=== PATIENT | male | born 1985 | race Caucasian/White ===

== ENCOUNTER 2017-03-02 20:10 | Emergency (ER) | payer OTHER ==
[2017-03-02 20:18] VITALS: BP 159/97
[2017-03-02] MEDS ORDERED: LIDOCAINE 2% URO-JET 5 ML SYRINGE UR STA (20:35)
[2017-03-02] MEDS ORDERED: IBUPROFEN 600 MG TABLET PO STA (20:35)
[2017-03-02] MEDS ORDERED: BACITRACIN OINT TOP STA (20:37)
[2017-03-02] MEDS ORDERED: LIDOCAINE 2% URO-JET 5 ML SYRINGE UR ONE (20:42)
[2017-03-02] MEDS ORDERED: IBUPROFEN 600 MG TABLET PO ONE (20:42)
[2017-03-02] MEDS ORDERED: BACITRACIN OINT TOP ONE (20:43)
--- NOTE | 2017-03-02 20:47 | ED Physician Documentation ---
PD HPI SKIN - Stated complaint Stated Complaint: BLISTERS BODY - Chief complaint Chief Complaint: General - History obtained from History obtained from: Patient - History of Present Illness Timing - onset: Yesterday Timing - details: Abrupt onset Location: RUE, LUE Quality / character: Painful, Burning, Discolored Associated symptoms: No: Fever, Myalgias, Joint pain Contributing factors: Unknown (sun exposure) Similar symptoms before: No diagnosis Recently seen: Not recently seen - Additional information Additional information: Patient is a 31 year old pale skin male who is presenting to the emergency department for pain and blistering of his shoulders. patient states that he was out in the sun a few days ago. the next day the area started to blister and he had a hard time raising his arms above his head. patient states that the pain seems to be getting progressively worse. Patient has been applying aloe with little relief. Review of Systems Constitutional: denies: Fever, Chills Eyes: denies: Loss of vision Ears: denies: Ear pain, Drainage/discharge Nose: denies: Rhinorrhea / runny nose, Congestion Cardiac: denies: Palpitations Respiratory: denies: Wheezing GI: denies: Nausea, Vomiting : denies: Dysuria, Frequency, Hesitancy Skin: reports: Rash Musculoskeletal: reports: Extremity pain, Extremity swelling Neurologic: denies: Numbness, Altered mental status Immunocompromised: denies: Immunocompromised PD PAST MEDICAL HISTORY - Past Medical History Respiratory: None Neuro: None Endocrine/Autoimmune: None GI: None : None HEENT: None Psych: None Musculoskeletal: None Derm: Other - Past Surgical History Past Surgical History: Yes Derm: Skin cancer surgery - Present Medications Home Medications: Ambulatory Orders Medication Instructions Recorded Confirmed Esomeprazole Magnesium [Nexium] 10 mg PO DAILY 03/02/17 03/02/17 Lidocaine Ointment 5% [Xylocaine 1 gm TOP QID #35 gm 03/02/17 Ointment 5%] - Allergies Allergies/Adverse Reactions: Allergies Allergy/AdvReac Type Severity Reaction Status Date / Time No Known Drug Allergies Allergy Verified 03/02/17 20:32 - Social History Does the pt smoke?: Yes Smoking Status: Current every day smoker Does the pt drink ETOH?: No Does the pt have substance abuse?: No - Immunizations Immunizations are current?: Yes PD ED PE NORMAL - Vitals Vital signs reviewed: Yes - General General: Alert and oriented X 3, Well developed/nourished - HEENT HEENT: Atraumatic, PERRL - Neck Neck: Supple, no meningeal sign - Cardiac Cardiac: RRR, No murmur - Respiratory Respiratory: No respiratory distress, Clear bilaterally - Abdomen Abdomen: Soft, Non tender, Non distended - Extremities Extremities: No edema - Neuro Neuro: Alert and oriented X 3, No motor deficit, No sensory deficit, Normal speech - Psych Psych: Normal mood, Normal affect PD ED PE EXPANDED - Derm Derm: Burn(s) (partial thickness leach on bilateral shoulders with some blistering, superficial leach surrounding on bilateral arms) Results - Vitals Vitals: Vital Signs - 24 hr 03/02/17 20:16 Temperature 36.2 C L Heart Rate 81 Respiratory 18 Rate Blood Pressure 159/97 H O2 Saturation 98 Oxygen O2 Source Room air PD MEDICAL DECISION MAKING - ED course Complexity details: reviewed results, re-evaluated patient, considered differential, d/w patient ED course: Patient was seen and examined at bedside. patient was in no acute acute distress. patient had partial thickness/second degree leach on both his shoulders. patient's wounds were treated with bacitracin and lidocaine. Patient was given motrin as well. Patient tolerated treatment well and was stable for discharge with outpatient follow up. Departure - Departure Disposition: 01 Home, Self Care Clinical Impression: Sunburn of second degree Condition: Good Instructions: ED Burn D 2nd Follow-Up: primary,care provider [Other] - Within 1 week Prescriptions: Lidocaine Ointment 5% [Xylocaine Ointment 5%] 1 gm TOP QID #35 gm Comments: Your symptoms today are being caused by a sunburn. It will likely blister and get worse over the next few days before getting better. You can continue with aloe/after sun care and supplement it with bacitracin and lidocaine cream. You should not try to unroof any blisters, but if they do open, try to keep the area clean and dry. You should follow up with your pmd as needed and may return to the emergency department at any time for new, worsening or uncontrollable symptoms. Discharge Date/Time: 03/02/17 21:08
== END 2017-03-02 21:08 | disposition home or self-care (01) ==
LOC: ED 20:10
DX: L55.1 Sunburn of second degree (principal); X32.XXXA Exposure to sunlight, initial encounter; Z85.828 Personal history of other malignant neoplasm of skin; F17.200 Nicotine dependence, unspecified, uncomplicated
CPT/HCPCS: 99283; A9270

== ENCOUNTER 2017-12-20 13:01 | Outpatient (CLI) | payer OTHER | END 2017-12-20 13:02 | disposition home or self-care (01) | LOC: SC 13:01 | PROVIDERS: ATTEND Internal Medicine Pulmonary Disease | DX: G47.30 Sleep apnea, unspecified (principal); G47.10 Hypersomnia, unspecified; R06.83 Snoring; G47.8 Other sleep disorders | CPT/HCPCS: 99203; 99212 ==

== ENCOUNTER 2018-02-09 19:32 | Outpatient (CLI) | payer OTHER | END 2018-02-09 19:33 | disposition home or self-care (01) | LOC: SC 19:32 | PROVIDERS: ATTEND Internal Medicine Pulmonary Disease | DX: G47.33 Obstructive sleep apnea (adult) (pediatric) (principal); R00.1 Bradycardia, unspecified | CPT/HCPCS: 95810 ==

== ENCOUNTER 2018-02-28 14:30 | Outpatient (CLI) | payer OTHER | END 2018-02-28 14:31 | disposition home or self-care (01) | LOC: SC 14:30 | PROVIDERS: ATTEND Nurse Practitioner Family | DX: G47.33 Obstructive sleep apnea (adult) (pediatric) (principal); R00.1 Bradycardia, unspecified | CPT/HCPCS: 99212; 99214 ==

== ENCOUNTER 2018-06-22 09:07 | Outpatient (CLI) | payer OTHER | END 2018-06-22 09:08 | disposition home or self-care (01) | LOC: SC 09:07 | PROVIDERS: ATTEND Nurse Practitioner Family | DX: G47.33 Obstructive sleep apnea (adult) (pediatric) (principal) | CPT/HCPCS: 99212; 99214 ==

== ENCOUNTER 2018-07-25 11:09 | Outpatient (CLI) | payer OTHER | END 2018-07-25 11:10 | disposition home or self-care (01) | LOC: SC 11:09 | PROVIDERS: ATTEND Nurse Practitioner Family | DX: G47.33 Obstructive sleep apnea (adult) (pediatric) (principal) | CPT/HCPCS: 99212; 99214 ==

== ENCOUNTER 2018-09-28 09:59 | Day surgery (SDC) | payer OTHER ==
--- NOTE | 2018-09-28 07:33 | ANESTHESIA ---
Pre-Anesthesia VS, & Labs - Diagnosis R Knee Patella Cartilage Injury - Procedure R knee arthroscopy, chondroplasty Vital Signs: Last Vital Signs Temp 36.2 C L 09/28/18 10:10 Pulse 78 09/28/18 10:10 Resp 16 09/28/18 10:10 BP 143/83 H 09/28/18 10:10 Pulse Ox 96 09/28/18 10:10 Height 5 ft 9 in Weight (kg) 112.94 kg Body Mass Index 34.4 - NPO >8 hours Home Medications and Allergies Home Medications: Ambulatory Orders Rabeprazole Sodium [Aciphex] 20 mg PO 09/19/18 Rabeprazole Sodium [Aciphex] 20 mg PO 09/19/18 Allergies/Adverse Reactions: Allergies Allergy/AdvReac Type Severity Reaction Status Date / Time No Known Drug Allergies Allergy Verified 09/19/18 10:45 Anes History & Medical History - Anesthetic History Anesthesia Complications: reports: No previous complications Family history of Anesthesia Complications: Denies Family history of Malignant Hyperthermia: Denies - Medical History Cardiovascular: reports: None Pulmonary: reports: Sleep apnea, CPAP use Gastrointestinal: reports: GERD Urinary: reports: Other Musculoskeletal: reports: Other Endocrine/Autoimmune: reports: None Blood Disorders: reports: None Skin: reports: None Smoking Status: Former smoker Psychosocial: reports: No issues indicated - Surgical History Dermatologic: Skin cancer surgery (birthmark removed from face as a child) Exam General: Alert, Oriented x3, Cooperative Dental: WNL, Partials Upper (#6 is "fake", not loose, "hasn't come out in years") Mouth Openin Fingerbreadth Neck Mobility: Normal Mallampati classification: II Thyromental Distance: 4-6 cm Respiratory: Lungs clear, Normal breath sounds Cardiovascular: Regular rate Neurological: Normal speech Mental/Cognitive Status: Alert/Oriented X3, Normal for patient Cognitive Status: Within normal limits Plan Anesthesia Type: General Consent for Procedure(s) Verified and Reviewed: Yes Code Status: Attempt Resuscitation ASA classification: 2-Mild systemic disease Is this case an emergency?: No
[~2018-09-28 09:59] MED LIST: BUPIVACAINE 0.25% PF 30 ML VIAL ONE; EPINEPHrine 1 MG/ML AMP ONE; LACTATED RINGERS 1,000 ML IV ONE; ceFAZolin 2 GM/50 ML 2 GM/50 ML BAG IV ONE
[2018-09-28] MEDS ORDERED: BUPIVACAINE 0.25% PF 30 ML VIAL SUBQ ONE ×2 (12:12→12:50)
[2018-09-28] MEDS ORDERED: oxyCODONE 5 MG TABLET PO PRN (13:09)
[2018-09-28] MEDS ORDERED: ONDANSETRON 4 MG/2 ML VIAL IVP PRN (13:09)
--- NOTE | 2018-09-28 13:13 | OPERATIVE REPORT ---
Operative Report - General Procedure Date: 09/28/18 Planned Procedure: Right knee arthroscopic synovectomy, lateral meniscus debridement, pat camelia Pre-Op Diagnosis: right knee patellar cartilage lesion and meniscal tear Procedure Performed: Right knee arthroscopic synovectomy, lateral meniscus debridement, patellar chondroplasty Post Op Diagnosis: right knee patellar cartilage injury, lateral meniscus tear, fat pad syndro - Procedure Note Primary Surgeon: Eugene Jamil Estimated Blood Loss (mL): 5 Complications: None - Other Other Information/Narrative: Indication For Surgery: 33-year-old male with 2 years of right knee pain of insidious onset. The pain was inferior and lateral to the patella and is worse while going up and down stairs. An MRI showed a patellar cartilage lesion and potentially evidence of fat pad syndrome. Nonoperative treatment did did not resolve his symptoms.. The risks, benefits, and alternatives were discussed. Risks include pain, bleeding, infection, damage to nearby structures and cartilage, lack of symptom relief, need for further surgery, DVT, PE, stroke, and . Written consent was obtained. Examination Under Anesthesia: ROM equal to the contralateral side. Stable dial at 30 & 90 degrees. Stable to varus and valgus stressing at 0 & 30 degrees. 1 a Glenna. Normal Pivot shift. No mechanical sensation Diagnostic Arthroscopy: No loose bodies. Synovium injected and abundant. Ligamentum mucosum was thickened and was debrided.. Patella cartilage central full-thickness lesion which was debrided to a stable base final measurements are 10 mm long 8 mm wide. Trochlear cartilage grade 1 softening. Medial femoral condyle cartilage intact. Medial tibial plateau cartilage intact. Medial meniscus intact. ACL was intact. PCL was intact. Lateral femoral condyle cartilage intact. Lateral tibial plateau cartilage intact. Lateral meniscus showed a small focal tear near the root which was debrided. Procedure in Detail: The patient was met in the pre-operative hold area on the day of the procedure. The operative extremity was signed and questions were answered. The patient was brought to the operating room and a general anesthetic was administered. Supine position was used and bony prominences were padded. An examination under anesthesia was performed. Standard prepping and draping was performed. A time out confirmed patient identification, laterality, procedure, allergies, antibiotics, and images. An Esmarch was used to exsanguinate the limb and the tourniquet was elevated to 250 mmHg. Tourniquet time was 41 minutes.A standard diagnostic arthroscopy of the knee was performed through anterolateral and anteromedial portal sites. The anteromedial portal was created under direct visualization after localizing with a spinal needle. The findings can be found above. I then proceeded to use a s carlyn shaver to debride the lateral meniscus. Final pictures were taken. I then used a combination of curettes biters and shawanda to debride the patellar cartilage lesion back to a stable base. There was an additional partial- thickness crack that traveled laterally within the patella cartilage and this was not explored. Final images were taken and all arthroscopic fluid and instruments were removed from the knee. The incisions were closed with buried monocryl sutures. Steri strips were applied. 20 cc of 0.25% Marcaine without epinephrine was injected near the portal sites. A sterile dressing and compression stocking was placed. The patient was awakened and transferred to recovery in stable condition.
[2018-09-28] MEDS ORDERED: oxyCODONE 5 MG TABLET ONE (13:54)
[2018-09-28 14:50] VITALS: BP 130/62
== END 2018-09-28 10:00 | disposition home or self-care (01) ==
LOC: SDS 09:59
PROVIDERS: ATTEND Orthopaedic Surgery
PROC: 0SBC4ZZ Excision of Right Knee Joint, Percutaneous Endoscopic Approach (ICD-10-PCS; principal; 2018-09-28 11:00)
DX: M23.200 Derangement of unspecified lateral meniscus due to old tear or injury, right knee (principal); M67.51 Plica syndrome, right knee; M23.91 Unspecified internal derangement of right knee; G47.30 Sleep apnea, unspecified; K21.9 Gastro-esophageal reflux disease without esophagitis; Z87.891 Personal history of nicotine dependence
CPT/HCPCS: 29881; A9270; J0690; J7120

== ENCOUNTER 2018-10-02 17:37 | Emergency (ER) | payer OTHER ==
[2018-10-02 17:44] VITALS: BP 148/91
--- NOTE | 2018-10-02 18:21 | ED Physician Documentation ---
PD HPI OPHTHO - Stated complaint Stated Complaint: EYE REDNESS - Chief complaint Chief Complaint: Heent - History obtained from History obtained from: Patient - History of Present Illness Timing - onset: Other (Left eye red since yesterday without visual deficit. Whole family has pinkeye.) Review of Systems Constitutional: reports: Reviewed and negative Eyes: reports: Discharge, Irritation. denies: Loss of vision, Decreased vision, Photophobia Ears: denies: Loss of hearing, Ear pain PD PAST MEDICAL HISTORY - Past Medical History Cardiovascular: None Respiratory: Sleep apnea, CPAP use Endocrine/Autoimmune: None GI: GERD : Other HEENT: None Psych: None Musculoskeletal: Other Derm: None - Past Surgical History Past Surgical History: Yes Ortho: Arthroscopic surgery Derm: Skin cancer surgery - Present Medications Home Medications: Ambulatory Orders Medication Instructions Recorded Confirmed Rabeprazole Sodium [Aciphex] 20 mg PO DAILY 09/19/18 09/28/18 Ibuprofen [Advil] 10/02/18 Polymyxin B/Trimeth Ophth Drop 1 drops EACHEYE Q3H 7 Days #1 10/02/18 [Polytrim Ophth Drops] bottle Sennosides/Docusate Sodium [Colace 10/02/18 2-in-1 Tablet] oxyCODONE/ACET 5/325 [Percocet 5 10/02/18 mg/325 mg] - Allergies Allergies/Adverse Reactions: Allergies Allergy/AdvReac Type Severity Reaction Status Date / Time No Known Drug Allergies Allergy Verified 10/02/18 17:43 - Social History Does the pt smoke?: Yes Smoking Status: Current every day smoker Does the pt drink ETOH?: No Does the pt have substance abuse?: No - Immunizations Immunizations are current?: Yes PD ED PE NORMAL - Vitals Vital signs reviewed: Yes - General General: Alert and oriented X 3, No acute distress - HEENT HEENT: PERRL (Left eye conjunctivitis), Ears normal, Pharynx benign - Neck Neck: Supple, no meningeal sign, No bony TTP - Neuro Neuro: Alert and oriented X 3, Normal speech Results - Vitals Vitals: Vital Signs - 24 hr 10/02/18 17:39 Temperature 36.1 C L Heart Rate 113 H Respiratory 16 Rate Blood Pressure 148/91 H O2 Saturation 99 Oxygen O2 Source Room air Departure - Departure Disposition: 01 Home, Self Care Clinical Impression: Conjunctivitis, left eye Qualifiers: Conjunctivitis type: acute Acute conjunctivitis type: unspecified Qualified Code(s): H10.32 - Unspecified acute conjunctivitis, left eye Condition: Good Record reviewed to determine appropriate education?: Yes Instructions: ED Conjunctivitis Nonspecific Prescriptions: Polymyxin B/Trimeth Ophth Drop [Polytrim Ophth Drops] 1 drops EACHEYE Q3H 7 Days #1 bottle Comments: Call your doctor to arrange a follow-up appointment, make the next available appointment. In the interim, return anytime if worse or if new symptoms develop. Your blood pressure was elevated today on check into the emergency department. This does not mean that you have hypertension, it is a common phenomenon to come to the emergency department and have elevated blood pressure. I recommend that you see your primary care physician within the week to have it rechecked when you are feeling better.
== END 2018-10-02 18:35 | disposition home or self-care (01) ==
LOC: ED 17:37
DX: H10.32 Unspecified acute conjunctivitis, left eye (principal); R03.0 Elevated blood-pressure reading, without diagnosis of hypertension; F17.200 Nicotine dependence, unspecified, uncomplicated
CPT/HCPCS: 99283

== ENCOUNTER 2018-10-04 08:59 | Outpatient (CLI) | payer OTHER | END 2018-10-04 09:00 | disposition home or self-care (01) | LOC: SC 08:59 | PROVIDERS: ATTEND Nurse Practitioner Family | DX: G47.33 Obstructive sleep apnea (adult) (pediatric) (principal); G47.00 Insomnia, unspecified | CPT/HCPCS: 99212; 99214 ==

== ENCOUNTER 2018-11-04 11:40 | Emergency (ER) | payer OTHER ==
[2018-11-04 12:07] LABS: MUDS CUTOFF CONCENTRATIONS CUTOFF CONC BELOW:
[2018-11-04 12:12] LABS: BILIRUBIN,URINE NEGATIVE (NEGATIVE); GLUCOSE, URINE (UA) NEGATIVE (NEGATIVE); KETONES,URINE (UA) TRACE mg/dL (NEGATIVE); LEUKOCYTE ESTERASE, URINE NEGATIVE (NEGATIVE); NITRITE,URINE NEGATIVE (NEGATIVE); OCCULT BLOOD,URINE NEGATIVE (NEGATIVE); PH,URINE 5.5 PH (5.0-7.5); PROTEIN,URINE NEGATIVE (NEGATIVE); UROBILINOGEN,URINE 0.2 (NORMAL) E.U./dL (NORMAL)
[2018-11-04 12:26] LABS: AMPHETAMINE SCREEN,URINE NEGATIVE (NEGATIVE); BENZODIAZEPINES SCREEN, URINE NEGATIVE (NEGATIVE); CLARITY,URINE CLEAR (CLEAR); COCAINE SCREEN URINE NEGATIVE (NEGATIVE); METHADONE SCREEN, URINE NEGATIVE (NEGATIVE); METHAMPHETAMINES SCREEN, URINE NEGATIVE (NEGATIVE); OPIATE SCREEN, URINE NEGATIVE (NEGATIVE); OXYCODONE SCREEN, URINE NEGATIVE (NEGATIVE); PROPOXYPHENE SCREEN, URINE NEGATIVE (NEGATIVE); TRICYCLIC ANTIDEPRESSANT,URINE NEGATIVE (NEGATIVE)
[2018-11-04 12:29] LABS: BASOPHILS % (AUTO) 0.4 %; EOSINOPHILS % (AUTO) 0.1 %; HGB - HEMOGLOBIN 14.4 g/dL (14.0-18.0); LYMPHOCYTES # (AUTO) 1.5 10^3/uL (1.5-3.5); LYMPHOCYTES % (AUTO) 13.1 %; MEAN CORPUSCULAR HGB CONC 33.7 g/dL (32.0-36.0); MEAN CORPUSCULAR VOLUME 89.2 fL (80.0-94.0); MEAN PLATELET VOLUME 8.4 fL (7.4-11.4); MONOCYTES # (AUTO) 0.4 10^3/uL (0.0-1.0); MONOCYTES % (AUTO) 3.6 %; NEUTROPHILS # (AUTO) 9.3 10^3/uL (1.5-6.6); NEUTROPHILS % (AUTO) 82.8 %; PLT - PLATELET COUNT 338 10^3/uL (130-450); RED BLOOD COUNT 4.81 10^6/uL (4.70-6.10); RED CELL DISTRIBUTION WIDTH 12.9 % (12.0-15.0); WHITE BLOOD COUNT 11.3 x10^3/uL (4.8-10.8)
--- NOTE | 2018-11-04 12:35 | ED Physician Documentation ---
PD HPI MHE - Stated complaint Stated Complaint: SI - Chief complaint Chief Complaint: MHE - History obtained from History obtained from: Patient - History of Present Illness Primary symptom: Suicidal ideation Timing - onset: Other (The patient has beenHaving intermittent episodes of suicidal ideations. The patient denies any active plan or active intentions to harm himself. The patient denies suicidal and homicidal ideation) Severity Comments: The symptoms are severe when they occur, currently the patient does not hav Similar symptoms before: Diagnosis Recently seen: Not recently seen Review of Systems Constitutional: denies: Fever, Chills Eyes: denies: Discharge Ears: denies: Ear pain Nose: denies: Congestion Throat: denies: Sore throat Cardiac: denies: Chest pain / pressure GI: denies: Abdominal Pain : denies: Dysuria Skin: denies: Rash Musculoskeletal: denies: Neck pain Neurologic: denies: Generalized weakness Psychiatric: reports: Depressed. denies: Homicidal, Hallucinations PD PAST MEDICAL HISTORY - Past Medical History Past Medical History: Yes Cardiovascular: None Respiratory: Sleep apnea, CPAP use Endocrine/Autoimmune: None GI: GERD : Other HEENT: None Psych: None Musculoskeletal: Other Derm: None - Past Surgical History Past Surgical History: Yes Ortho: Arthroscopic surgery Derm: Skin cancer surgery - Present Medications Home Medications: Ambulatory Orders Medication Instructions Recorded Confirmed Rabeprazole Sodium [Aciphex] 20 mg PO DAILY 09/19/18 11/04/18 - Allergies Allergies/Adverse Reactions: Allergies Allergy/AdvReac Type Severity Reaction Status Date / Time No Known Drug Allergies Allergy Verified 11/04/18 11:45 - Social History Does the pt smoke?: Yes Smoking Status: Current every day smoker Does the pt drink ETOH?: No Does the pt have substance abuse?: No - Immunizations Immunizations are current?: Yes - POLST Patient has POLST: No PD ED PE NORMAL - General General: Alert and oriented X 3, No acute distress - HEENT HEENT: Atraumatic, PERRL, EOMI, Ears normal - Cardiac Cardiac: RRR - Respiratory Respiratory: No respiratory distress - Derm Derm: Normal color - Extremities Extremities: No deformity - Neuro Neuro: Alert and oriented X 3, Normal speech PD ED PE EXPANDED - Psych Psych: Anxious. No: Homicidal, Tearful, Withdrawn, Poor eye contact, Non verbal Results - Vitals Vitals: Vital Signs - 24 hr 11/04/18 11:43 Temperature 36.3 C L Heart Rate 80 Respiratory 20 Rate Blood Pressure 153/88 H O2 Saturation 97 Oxygen O2 Source Room air - Labs Labs: Laboratory Tests 11/04/18 11/04/18 11/04/18 12:05 12:10 12:10 WBC 11.3 H RBC 4.81 Hgb 14.4 Hct 42.9 MCV 89.2 MCH 30.0 MCHC 33.7 RDW 12.9 Plt Count 338 MPV 8.4 Neut # (Auto) 9.3 H Lymph # (Auto) 1.5 Latimer # (Auto) 0.4 Eos # (Auto) 0.0 Baso # (Auto) 0.0 Absolute Nucleated RBC 0.00 Nucleated RBC % 0.0 Sodium 138 Potassium 3.9 Chloride 103 Carbon Dioxide 25 Anion Gap 10.0 BUN 16 Creatinine 1.0 Estimated GFR (MDRD) 87 L Glucose 95 Calcium 9.5 Total Bilirubin 0.6 AST 36 ALT 51 Alkaline Phosphatase 53 Total Protein 8.5 H Albumin 4.7 Globulin 3.8 Albumin/Globulin Ratio 1.2 Lipase 33 TSH Urine Color YELLOW Urine Clarity CLEAR Urine pH 5.5 Ur Specific [place] 1.025 Urine Protein NEGATIVE Urine Glucose (UA) NEGATIVE Urine Ketones TRACE Urine Occult Blood NEGATIVE Urine Nitrite NEGATIVE Urine Bilirubin NEGATIVE Urine Urobilinogen 0.2 (NORMAL) Ur Leukocyte Esterase NEGATIVE Ur Microscopic Review NOT INDICATED Urine Culture Comments NOT INDICATED Salicylates < 6.0 Urine Opiates Screen NEGATIVE Ur Oxycodone Screen NEGATIVE Urine Methadone Screen NEGATIVE Ur Propoxyphene Screen NEGATIVE Acetaminophen < 10 L Ur Barbiturates Screen NEGATIVE Ur Tricyclics Screen NEGATIVE Ur Phencyclidine Scrn NEGATIVE Ur Amphetamine Screen NEGATIVE U Methamphetamines Scrn NEGATIVE U Benzodiazepines Scrn NEGATIVE Urine Cocaine Screen NEGATIVE U Cannabinoids Screen NEGATIVE Ethyl Alcohol 16.1 11/04/18 12:10 WBC RBC Hgb Hct MCV MCH MCHC RDW Plt Count MPV Neut # (Auto) Lymph # (Auto) Latimer # (Auto) Eos # (Auto) Baso # (Auto) Absolute Nucleated RBC Nucleated RBC % Sodium Potassium Chloride Carbon Dioxide Anion Gap BUN Creatinine Estimated GFR (MDRD) Glucose Calcium Total Bilirubin AST ALT Alkaline Phosphatase Total Protein Albumin Globulin Albumin/Globulin Ratio Lipase TSH 0.88 Urine Color Urine Clarity Urine pH Ur Specific [place] Urine Protein Urine Glucose (UA) Urine Ketones Urine Occult Blood Urine Nitrite Urine Bilirubin Urine Urobilinogen Ur Leukocyte Esterase Ur Microscopic Review Urine Culture Comments Salicylates Urine Opiates Screen Ur Oxycodone Screen Urine Methadone Screen Ur Propoxyphene Screen Acetaminophen Ur Barbiturates Screen Ur Tricyclics Screen Ur Phencyclidine Scrn Ur Amphetamine Screen U Methamphetamines Scrn U Benzodiazepines Scrn Urine Cocaine Screen U Cannabinoids Screen Ethyl Alcohol PD MEDICAL DECISION MAKING - ED course ED course: The patient was seen and evaluated by social work, the patient contracts for safety and is a safe discharge home. Social work has arranged for outpatient management for the patient. The patient will return to the emergency department immediately for any worsening or any concerns Departure - Departure Disposition: 01 Home, Self Care Clinical Impression: Suicidal ideations Condition: Good Instructions: ED Depression, Suicide Warning Signs Self Comments: Please follow-up with the resources that have been provided to you to further manage your depression and suicidal ideations Please return to the emergency department for any worsening or any concerns
[2018-11-04 12:37] LABS: ACETAMINOPHEN < 10 ug/mL (10-30); ALBUMIN 4.7 g/dL (3.2-5.5); ALBUMIN/GLOBULIN RATIO 1.2 (1.0-2.2); ALKALINE PHOSPHATASE 53 IU/L (42-121); ALT ALANINE AMINOTRANSFERASE 51 IU/L (10-60); AST ASPARTATE AMINOTRANSFERASE 36 IU/L (10-42); BILIRUBIN,TOTAL 0.6 mg/dL (0.2-1.0); BUN - BLOOD UREA NITROGEN 16 mg/dL (6-20); CALCIUM 9.5 mg/dL (8.5-10.3); CARBON DIOXIDE - CO2 25 mmol/L (21-32); CHLORIDE 103 mmol/L (101-111); GFR - MDRD 87 (>89); GLUCOSE 95 mg/dL (70-100); LIPASE 33 U/L (22-51); SALICYLATE < 6.0 mg/dL; SODIUM 138 mmol/L (135-145); TOTAL PROTEIN 8.5 g/dL (6.7-8.2)
[2018-11-04] MEDS ORDERED: NAPROXEN 250 MG TABLET PO STA (13:59)
[2018-11-04] MEDS ORDERED: ACETAMINOPHEN 500 MG TABLET PO STA (13:59)
[2018-11-04] MEDS ORDERED: ONDANSETRON ODT 4 MG TABLET TL STA (13:59)
[2018-11-04 16:17] VITALS: BP 141/82
== END 2018-11-04 16:21 | disposition home or self-care (01) ==
LOC: ED 11:40
DX: R45.851 Suicidal ideations (principal); F17.200 Nicotine dependence, unspecified, uncomplicated
CPT/HCPCS: 36415; 80053; 80306; 80307; 80320; 80329; 81003; 83690; 84443; 85025; 99283; 99284; Q0162; 81001; 87086

== ENCOUNTER 2018-12-18 08:40 | Outpatient (CLI) | payer OTHER | END 2018-12-18 08:41 | disposition home or self-care (01) | LOC: SC 08:40 | PROVIDERS: ATTEND Nurse Practitioner Family | DX: G47.33 Obstructive sleep apnea (adult) (pediatric) (principal) | CPT/HCPCS: 99212; 99214 ==

== ENCOUNTER 2019-01-18 10:50 | Outpatient (CLI) | payer OTHER | END 2019-01-18 10:51 | disposition home or self-care (01) | LOC: SC 10:50 | PROVIDERS: ATTEND Nurse Practitioner Family | DX: G47.33 Obstructive sleep apnea (adult) (pediatric) (principal) | CPT/HCPCS: 99212; 99214 ==

== ENCOUNTER 2019-02-18 00:52 | Emergency (ER) | payer OTHER ==
[2019-02-18 01:05] VITALS: BP 131/109
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
== END 2019-02-18 02:19 | disposition home or self-care (01) ==
LOC: EDUNIT# → ED 00:52
DX: S00.83XA Contusion of other part of head, initial encounter (principal); Y09 Assault by unspecified means; F17.200 Nicotine dependence, unspecified, uncomplicated
CPT/HCPCS: 99282; 99283